=== PATIENT | female | born 1970 ===

== ENCOUNTER 2017-10-30 16:01 | Emergency (ER) | payer MEDICAID, OTHER ==
[2017-10-30] MEDS ORDERED: Morphine 4 MG/ML VIAL IVP ONE ×2 (20:01→22:06)
[2017-10-30] MEDS ORDERED: Sodium Chloride 0.9% 1,000 ML IV SCH (20:15)
--- NOTE | 2017-10-30 20:26 | ED PDOC ---
HPI: Abdomen Time Seen by Provider: 10/30/17 20:00 Chief Complaint (Nursing): Abdominal Pain Chief Complaint (Provider): Abdominal Pain History Per: Patient History/Exam Limitations: no limitations Onset/Duration Of Symptoms: Days (x5) Current Symptoms Are (Timing): Still Present Additional Complaint(s): 47 y/o female with a pmhx of cholecystectomy and left ovarian cystectomy, who presents to the ED complaining of abdominal pain and lower back pain x5 days. Patient states her abdominal pain radiates to her back. Past Medical History Reviewed: Historical Data, Nursing Documentation, Vital Signs Vital Signs: Last Vital Signs Temp 98.2 F 10/30/17 17:30 Pulse 94 H 10/30/17 17:30 Resp 17 10/30/17 17:30 BP 109/76 10/30/17 17:30 Pulse Ox 98 10/30/17 23:08 - Medical History PMH: No Chronic Diseases - Surgical History Surgical History: Appendectomy Other surgeries: Left ovarian cystectomy - Family History Family History: States: Unknown Family Hx - Immunization History Hx Tetanus Toxoid Vaccination: No Hx Influenza Vaccination: No Hx Pneumococcal Vaccination: No - Home Medications Home Medications: Ambulatory Orders Medication Instructions Recorded Acetaminophen with Codeine 1 each PO QID #20 tablet 10/30/17 [Tylenol with Codeine #3 Tablet] - Allergies Allergies/Adverse Reactions: Allergies Allergy/AdvReac Type Severity Reaction Status Date / Time No Known Allergies Allergy Verified 10/30/17 17:30 Review of Systems ROS Statement: Except As Marked, All Systems Reviewed And Found Negative Gastrointestinal: Positive for: Abdominal Pain. Negative for: Vomiting Genitourinary Female: Negative for: Dysuria Musculoskeletal: Positive for: Back Pain Physical Exam - Reviewed Nursing Documentation Reviewed: Yes Vital Signs Reviewed: Yes - Physical Exam Appears: Positive for: Non-toxic, No Acute Distress Head Exam: Positive for: ATRAUMATIC Skin: Positive for: Normal Color, Warm, DRY Eye Exam: Positive for: Normal appearance Cardiovascular/Chest: Positive for: Regular Rate, Rhythm, Chest Non Tender. Negative for: Murmur Respiratory: Positive for: Normal Breath Sounds. Negative for: Rales, Wheezing , Respiratory Distress, Plerual Rub Gastrointestinal/Abdominal: Positive for: Tenderness (McBurney's sign positive, Rosving's sign positive, [place]'s sign positive), Rebound Neurologic/Psych: Positive for: Alert, Oriented - Laboratory Results Result Diagrams: 10/30/17 20:25 10/30/17 20:25 - ECG O2 Sat by Pulse Oximetry: 98 (RA) Pulse Ox Interpretation: Normal Medical Decision Making Medical Decision Makin:02 Initial Impression: Appendicitis Plan: -CT Abdomen and Pelvis -CMP -Lipase -CBC -Morphine 4mg IVP -Fluid bolus -Urinalysis -Reevaluation 21:58 FINDINGS: Lung bases: Unremarkable. No mass. No consolidation. ABDOMEN: Liver: Unremarkable. No mass. Gallbladder and bile ducts: Unremarkable. No calcified stones. No ductal dilation. Pancreas: Unremarkable. No mass. No ductal dilation. Spleen: Unremarkable. No splenomegaly. Adrenals: Indeterminate left adrenal gland 2.7 cm nodule. Kidneys and ureters: Unremarkable. No solid mass. No hydronephrosis. Stomach and bowel: Unremarkable. No obstruction. No mucosal thickening. Appendix: No findings to suggest acute appendicitis. PELVIS: Bladder: Unremarkable. No mass. Reproductive: Rounded 4.5 cm hypoattenuating structure appears to be within the right uterine wall likely representing a leiomyoma and appears separate from the right ovary. Uterine fundal 4.7 cm apparent leiomyoma. ABDOMEN and PELVIS: Intraperitoneal space: Small free fluid in the right pelvis. No free air. Bones/joints: No acute fracture. No dislocation. Soft tissues: Unremarkable. Vasculature: Unremarkable. No abdominal aortic aneurysm. Lymph nodes: Unremarkable. No enlarged lymph nodes. IMPRESSION: 1. Small free fluid in the right pelvis. No acute findings otherwise. 2. Leiomyomatous uterus 3. Indeterminate left adrenal gland 2.7 cm nodule. Scribe Attestation: Documented by Evgeny Wilcox, acting as a scribe for Joseph Leroy PA-C. Provider Scribe Attestation: All medical record entries made by the Scribe were at my direction and personally dictated by me. I have reviewed the chart and agree that the record accurately reflects my personal performance of the history, physical exam, medical decision making, and the department course for this patient. I have also personally directed, reviewed, and agree with the discharge instructions and disposition. Disposition - Clinical Impression Clinical Impression: Leiomyoma, Abdominal discomfort, Abdominal pain in female - Patient ED Disposition Is Patient to be Admitted: No Counseled Patient/Family Regarding: Studies Performed, Diagnosis, Need For Followup - Disposition [facility] Disposition Time: 23:04 Condition: GOOD Prescriptions: Acetaminophen with Codeine [Tylenol with Codeine #3 Tablet] 1 each PO QID #20 tablet Instructions: Uterine Fibroids Forms: [facility] (Albanian)
[2017-10-30 20:33] LABS: BASO # 0.1 K/uL (0.0-0.2); BASO % 0.5 % (0.0-2.0); EOS # 0.2 K/uL (0.0-0.7); EOS % 1.6 % (0.0-4.0); LYMPH # 1.8 K/uL (1.0-4.3); LYMPH % 17.7 % (20.0-40.0); MEAN CELL VOLUME 93.2 fl (81.0-99.0); MEAN CORPUSCULAR HEMOGLOBIN 31.1 pg (27.0-31.0); MEAN CORPUSCULAR HGB CONC 33.4 g/dL (33.0-37.0); MEAN PLATELET VOLUME 12.3 fl (7.2-11.7); MONO % 10.2 % (0.0-10.0); NEUT # 7.1 K/uL (1.8-7.0); RBC 4.51 Mil/uL (3.80-5.20); RED CELL DISTRIBUTION WIDTH 13.5 % (11.5-14.5); WHITE BLOOD COUNT 10.2 K/uL (4.8-10.8)
[2017-10-30 20:35] LABS: SQUAMOUS EPITHIAL 1 /hpf (0-5); URINE BACTERIA RARE (<OCC); URINE BILIRUBIN NEGATIVE (NEGATIVE); URINE BLOOD SMALL (NEGATIVE); URINE CLARITY SLIGHTY-CLOUDY (Clear); URINE COLOR STRAW (YELLOW); URINE GLUCOSE (UA) NEG (Normal); URINE LEUKOCYTE ESTERASE NEG Leu/uL (Negative); URINE PROTEIN NEGATIVE (NEGATIVE); URINE UROBILINOGEN 0.2-1.0 mg/dL (0.2-1.0)
[2017-10-30 20:47] LABS: ALB/GLOB RATIO 1.1 (1.0-2.1); ALBUMIN 4.2 g/dL (3.5-5.0); ALT/SGPT 38 U/L (9-52); AST/SGOT 26 U/L (14-36); BLOOD UREA NITROGEN 9 mg/dl (7-17); CALCIUM 9.5 mg/dL (8.4-10.2); GFR AFRICAN-AMERICAN > 60; GFR NON-AFRICAN AMERICAN > 60; LIPASE 33 U/L (23-300)
[2017-10-30] MEDS ORDERED: Iohexol 300 100 ML IJ ONE (21:05)
[2017-10-31 00:06] VITALS: BP 96/63; PULSE 92; RESP 18; TEMP 98.1; O2SAT 97
--- NOTE | 2017-10-31 10:34 | CT ---
PROCEDURE: CT Abdomen and Pelvis with contrast HISTORY: Appendicitis suspected. Negative test (concurrent with this examination). COMPARISON: None. TECHNIQUE: Contrast dose: 90 cc Omnipaque 300 Radiation dose: Total exam DLP = 348.21 mGy-cm. This CT exam was performed using one or more of the following dose reduction techniques: Automated exposure control, adjustment of the mA and/or kV according to patient size, and/or use of iterative reconstruction technique. FINDINGS: LOWER THORAX: Unremarkable. LIVER: Hepatic steatosis. No focal masses. No intrahepatic bile duct dilatation or perihepatic ascites. GALLBLADDER AND BILE DUCTS: Unremarkable. PANCREAS: Unremarkable. No gross lesion or ductal dilatation. SPLEEN: Unremarkable. ADRENALS: Left adrenal gland: Well-circumscribed mass 2 x 2.7 cm. Right adrenal gland: Unremarkable. No mass. KIDNEYS AND URETERS: Unremarkable. No hydronephrosis. No solid mass. VASCULATURE: Unremarkable. No aortic aneurysm. BOWEL: Unremarkable. No obstruction. No gross mural thickening. APPENDIX: No abnormalities to suggest acute appendicitis. No right lower quadrant inflammatory processes identified. PERITONEUM: Unremarkable. No free fluid. No free air. LYMPH NODES: Unremarkable. No enlarged lymph nodes. BLADDER: Unremarkable. REPRODUCTIVE: Enlarged, heterogeneous uterus with well-circumscribed mass likely uterine fibroid. The mass measures 4.7 x 4.5 cm. Deformed, partially collapsed right adnexal cyst 1.5 cm. This likely represents recent ruptured adnexal cyst. Trace free fluid identified in the pelvis/cul de sac. BONES: No acute fracture. OTHER FINDINGS: None. IMPRESSION: Findings suggestive of recently ruptured right adnexal cyst and trace fluid in the cul-de-sac. No CT findings to suggest acute appendicitis or other right lower quadrant inflammatory process. Enlarged left adrenal gland indeterminate characteristics. Enlarged uterus with fundal fibroid. Concordant results (preliminary interpretation) provided by [facility]. Procedure Completed: 21:11 Preliminary ([facility]) Report: Dictated and Authenticated: 21:58 Final Interpretation: 10:32 October 31, 2017.
== END 2017-10-31 00:06 | disposition home or self-care (01) ==
LOC: H.ER 16:01
DX: D25.9 Leiomyoma of uterus, unspecified (principal); R10.9 Unspecified abdominal pain
CPT/HCPCS: 74177; 80053; 81003; 81025; 83690; 85025; 96361; 96374; 96376; 99283; J2270; J7040; Q9967